=== PATIENT | male | born 1960 | race Caucasian/White ===

== ENCOUNTER 2021-01-07 11:57 | Emergency (ER) | payer SELFPAY ==
[~2021-01-07] VITALS: Ht 180.3 cm; Wt 66.4 kg
--- NOTE | 2021-01-07 12:15 | NUR ---
RIGHT THIGH LAC WHILE CUTTING CARPET.
[2021-01-07] MEDS ORDERED: LIDOCAINE-MPF 1%, 5ML ONE (12:19)
[2021-01-07] MEDS ORDERED: LIDOCAINE-MPF 1%, 5ML INFIL ONE (12:30)
--- NOTE | 2021-01-07 13:17 | NUR ---
PROVIDER AT BEDSIDE FOR SUTURES.
[2021-01-07] MEDS ORDERED: BACITRACIN ZINC OINT 500U/GM, 0.9 GM ONE (13:22)
== END 2021-01-07 13:29 | disposition home or self-care (01) ==
LOC: ED 12:24
DX: S71.111A Laceration without foreign body, right thigh, initial encounter (principal); X58.XXXA Exposure to other specified factors, initial encounter; Y93.89 Activity, other specified; Y92.89 Other specified places as the place of occurrence of the external cause; Y99.8 Other external cause status
CPT/HCPCS: 12031; 99284